=== PATIENT | female | born 1965 ===

== ENCOUNTER 2017-06-12 14:09 | Emergency (ER) | payer OTHER ==
[2017-06-12 14:09] VITALS: BMI 30.1
[2017-06-12 14:20] VITALS: RESP 20; TEMP 98.3; O2SAT 97
[2017-06-12 15:44] LABS: RBC URINE 1 /hpf (0-3); URINE BILIRUBIN NEGATIVE (NEGATIVE); URINE BLOOD NEGATIVE (NEGATIVE); URINE COLOR Yellow (YELLOW); URINE GLUCOSE (UA) NORMAL (Normal); URINE KETONE NEGATIVE (NEGATIVE); URINE LEUKOCYTE ESTERASE NEG Leu/uL (Negative); URINE PROTEIN NEGATIVE (NEGATIVE); URINE UROBILINOGEN NORMAL mg/dL (0.2-1.0); WBC URINE < 1 /hpf (0-5)
--- NOTE | 2017-06-12 15:58 | C.PDOC ---
Time Seen by Provider: 06/12/17 14:43 Chief Complaint (Nursing): Fever History Per: Patient Onset/Duration Of Symptoms: Days (1) Current Symptoms Are (Timing): Still Present Associated Symptoms: Fever (subjective), Myalgias, Nasal Congestion Severity: Moderate Recent travel outside of the [place]: No Additional History Per: Prior Records Past Medical History Reviewed: Historical Data, Nursing Documentation, Vital Signs Vital Signs: Last Vital Signs Temp 98.3 F 06/12/17 14:19 Pulse 89 06/12/17 14:19 Resp 20 06/12/17 14:19 BP 129/89 06/12/17 14:19 Pulse Ox 97 06/12/17 14:19 - Medical History PMH: Anxiety, Arthritis, Asthma, Back Problems, Bipolar Disorder, Depression, Gastritis, HTN, Osteoporosis, Rheumatoid Arthritis, Sleep Apnea Other PMH: Lupus Other Surgeries: Hysterectomy - [facility] Procedures PHYSICAL THERAPY [facility] (03/12/15) Family History: States: Unknown Family Hx - Social History Hx Tobacco Use: No Hx Alcohol Use: No Hx Substance Use: No - Immunization History Hx Tetanus Toxoid Vaccination: No Hx Influenza Vaccination: Yes Hx Pneumococcal Vaccination: No Review Of Systems Except As Marked, All Systems Reviewed And Found Negative. Constitutional: Negative for: Weakness ENT: Positive for: Nose Congestion. Negative for: Ear Pain, Throat Pain Cardiovascular: Negative for: Chest Pain Respiratory: Negative for: Shortness of Breath Gastrointestinal: Negative for: Vomiting, Abdominal Pain, Diarrhea Genitourinary: Negative for: Dysuria Musculoskeletal: Positive for: Other (Arthralgias) Neurological: Negative for: Weakness, Numbness, Seizures, Altered Mental Status Physical Exam - Physical Exam Appears: Non-toxic, No Acute Distress Skin: Normal Color, Warm, Dry Head: Atraumatic, Normacephalic Eye(s): bilateral: Normal Inspection, PERRL, EOMI Oral Mucosa: Moist Throat: Normal Neck: Normal ROM, Supple Lymphatic: No Adenopathy Cardiovascular: Rhythm Regular Respiratory: Normal Breath Sounds, No Accessory Muscle Use Gastrointestinal/Abdominal: Soft, No Tenderness Extremity: Normal ROM, No Pedal Edema Neurological/Psych: Oriented x3, Normal Speech, Normal Cognition, Normal Motor, Normal Sensation ED Course And Treatment O2 Sat by Pulse Oximetry: 97 Pulse Ox Interpretation: Normal Reassessment Condition: Improved Disposition Counseled Patient/Family Regarding: Studies Performed, Diagnosis, Need For Followup, Rx Given - Disposition Disposition: HOME/ ROUTINE Disposition Time: 15:58 Condition: STABLE Additional Instructions: Follow up with your doctor this week for further evaluation and treatment. Return to the ER if you develop high fever, lethargy, shortness of breath, abdominal pain, vomiting, worsening of symptoms or if you have any other concerns. Prescriptions: traMADol/Acetaminophen [Ultracet 325 MG-37.5 MG] 1 tab PO Q4 PRN #30 tab PRN Reason: Pain, Severe (8-10) Instructions: Arthralgia (ED) Forms: [employer] (Arabic) - Clinical Impression Clinical Impression: Arthralgia
[2017-06-12 16:05] VITALS: BP 124/84; PULSE 78
== END 2017-06-12 16:04 | disposition home or self-care (01) ==
LOC: C.ER 14:09
DX: M25.50 Pain in unspecified joint (principal)

== ENCOUNTER 2017-09-07 10:04 | Emergency (ER) | payer OTHER ==
[2017-09-07 10:10] VITALS: RESP 16; TEMP 97.8
[2017-09-07 10:12] VITALS: BMI 33.9
[2017-09-07] MEDS: Sodium Chloride 0.9% 1,000 ML IV ONE (10:48)
[2017-09-07 10:50] LABS: BASO % 0.7 % (0.0-2.0); EOS # 0.1 K/uL (0.0-0.7); EOS % 1.8 % (0.0-4.0); HEMATOCRIT 39.8 % (34.0-47.0); LYMPH # 2.5 K/uL (1.0-4.3); LYMPH % 36.7 % (20.0-40.0); MEAN CELL VOLUME 81.4 fL (81.0-99.0); MEAN CORPUSCULAR HEMOGLOBIN 27.2 pg (27.0-31.0); MEAN CORPUSCULAR HGB CONC 33.4 g/dL (33.0-37.0); MEAN PLATELET VOLUME 8.4 fL (7.2-11.7); MONO # 0.5 K/uL (0.0-0.8); MONO % 7.8 % (0.0-10.0); NRBC % 0.1 % (0.0-2.0); RED CELL DISTRIBUTION WIDTH 14.9 % (11.5-14.5); WHITE BLOOD COUNT 6.8 K/uL (4.8-10.8)
--- NOTE | 2017-09-07 10:58 | C.PDOC ---
History Of Present Illness 52 year old female, with PMHx of rheumatoid arthritis, lupus, fibromyalgia, presents to ED for evaluation of gradual development of upper back pain over the past 6 days. Patient states that when she turned her head in the shower 6 days ago, she suddenly felt a sharp pain along the upper back spine, and states that pain has gotten worse since that time. Notes that pain is worse today, and states she felt "chest tightness from the pain." Pt states that she only takes Tylenol for her pain, she has tried multiple other medications but develops reaction to it. Otherwise, pt denies headache, dizziness, visual changes, focal deficits, neck pain, N/V, denies CP at present time, shortness of breath, palpitations, diaphoresis, abd. pain, vomiting, diarrhea, denies weakness, sensory or vascular deficits to B/L UEs and LEs. At the time of evaluation, pt appears comfortable, not in any apparent distress. PMD: Brayden Staley Pantry Cook: Dr. Vivas Time Seen by Provider: 09/07/17 10:20 Chief Complaint (Nursing): Chest Pain History Per: Patient History/Exam Limitations: no limitations Onset/Duration Of Symptoms: Days (6), Gradual Current Symptoms Are (Timing): Still Present Quality: "Pain" Associated Symptoms: denies: Nausea, Dyspnea, Diaphoresis, Syncope Modifying Factors: None Exacerbating Factors: None Alleviating Factors: None Recent travel outside of the [place]: No Additional History Per: Patient Past Medical History Reviewed: Historical Data, Nursing Documentation, Vital Signs Vital Signs: Last Vital Signs Temp 97.8 F 09/07/17 10:09 Pulse 97 H 09/07/17 12:21 Resp 16 09/07/17 12:21 BP 125/74 09/07/17 12:21 Pulse Ox 98 09/07/17 12:21 - Medical History PMH: Anxiety, Arthritis, Asthma, Back Problems, Bipolar Disorder, Depression, Gastritis, HTN, Osteoporosis, Rheumatoid Arthritis, Sleep Apnea Denies: Chronic Kidney Disease - [facility] Procedures PHYSICAL THERAPY [facility] (03/12/15) Family History: States: Unknown Family Hx - Social History Hx Tobacco Use: No Hx Alcohol Use: No Hx Substance Use: No - Immunization History Hx Tetanus Toxoid Vaccination: No Hx Influenza Vaccination: No Hx Pneumococcal Vaccination: No Review Of Systems Except As Marked, All Systems Reviewed And Found Negative. Constitutional: Negative for: Fever, Chills Eyes: Negative for: Vision Change Cardiovascular: Positive for: Chest Pain (tightness). Negative for: Palpitations, Edema, Light Headedness Respiratory: Negative for: Cough, Shortness of Breath Gastrointestinal: Negative for: Nausea, Vomiting, Abdominal Pain Genitourinary: Negative for: Dysuria, Incontinence Musculoskeletal: Positive for: Back Pain. Negative for: Neck Pain Skin: Negative for: Rash, Bruising Neurological: Negative for: Weakness, Numbness, Headache, Dizziness Physical Exam - Physical Exam Appears: Non-toxic, No Acute Distress Skin: Normal Color, Warm, Dry, No Rash Head: Normacephalic Eye(s): bilateral: PERRL Nose: No Flaring Oral Mucosa: Moist, No Drooling Throat: No Erythema Neck: Normal ROM, Trachea Midline, No Midline Cervical Tenderness, No Paracervical Tenderness, Supple Chest: Symmetrical, No Deformity, No Tenderness Cardiovascular: Rhythm Regular, No Murmur, No JVD, Other (no carotid bruits B/L) Respiratory: No Accessory Muscle Use, No Rales, No Rhonchi, No Stridor, No Wheezing, No Plerual Rub Gastrointestinal/Abdominal: Soft, No Tenderness, No Distention, No Guarding Back: No CVA Tenderness, No Vertebral Tenderness, Paraspinal Tenderness ( diffuse parathoracic, paralumbar) Extremity: Normal ROM, Tenderness (bilateral periscapular), No Pedal Edema, No Calf Tenderness, Capillary Refill (< 2 secs.), No Deformity, No Swelling Neurological/Psych: Oriented x3, Normal Speech, Normal Cognition, Normal Motor, Normal Sensation, Normal Reflexes ED Course And Treatment - Laboratory Results Result Diagrams: 09/07/17 10:45 09/07/17 10:45 Lab Interpretation: Normal ECG: Interpreted By Me, Viewed By Me (and ED attending) Interpretation Of ECG: SR@54/min, LAD, T wave inversion in III, AVF, no acute ST -T chabges. Compare to old EKG from 11/07/14 and appears similar , no new acute changes noted. O2 Sat by Pulse Oximetry: 97 (RA) Pulse Ox Interpretation: Normal - CT Scan/US Chest CT Other Rad Studies (CT/US): Read By Radiologist, Radiology Report Reviewed CT/US Interpretation: Accession No. : [id number]. Patient Name / ID : ELISEO CRANE / [id number]. Exam Date : 09/07/2017 11:00:25 ( Approved ). Study Comment : Sex / Age : F / 52Y. Creator : Bee Henderson MD. Dictator : Bee Henderson MD. Granular Operator : Dry Cleaner Helper : Bee Henderson MD. Approver2 : Report Date : 09/07/2017 11:25:41. My Comment : . CT chest without IV contrast. Indication: Shortness of breath. Technique: Contiguous axial images were obtained through the chest without intravenous contrast enhancement. Sagittal and coronal reconstructions were generated and reviewed. This CT exam was performed using 1 or more of the falling dose reduction techniques: Automated exposure control, adjustment of the MAA and/or kV according to patient size, and/or use of iterative reconstruction technique. . Radiation dose (DLP): 806.35 MGy-cm. Comparison: Chest x-ray performed . Findings: Visualized portions of the inferior thyroid gland appear unremarkable. The unenhanced mediastinal and hilar vascular structures appear grossly unremarkable. The heart appears within normal limits of size. No focal consolidation. No pleural effusion. No pneumothorax. Several tiny pulmonary nodules noted in the right lower lobe. For example 5 mm (series 3, image 54); 3 mm (image 55), 4 mm (image 61); 5 mm (image 64). Limited visualization of the noncontrast upper abdomen appears grossly unremarkable. Degenerative changes of the spine. Impression: Several right lower lobe pulmonary nodules measuring up to 5 mm. According to the 2017 Fleischner criteria, if the patient is low risk, no routine follow-up is recommended. The patient is high risk, an optional CT at 12 months is recommended. Progress Note: Blood work, urinalysis, chest CT scan, EKG ordered and reviewed. Patient was given IV fluids, and Valium. On re-evaluation, pt is afebrile, hemodynamicaly stable. Non-toxic. PulsEOx 100% RA. ENT: no acute findings. neck: Supple, (-) JVD, (-) carotid bruits B/L. Lungs: CTA B/L, BS equal B/L. CVS: (+)S1S2, reg. Abd: benign. Neurologicaly intact. Blood work and imaging review and appears without acute abnormalities. Case discussed with pt's manager company and results review. As per doctor, pt refusing all offered Rh, Lupus and pain medication , takes limited medication . recommend discahrge with outpt f/u now. results review and discussed with patient. Will Rx: Robaxin, tylenol with outpt f/u now with PMD, Rh for further eval/tx, PT. Pt understand and agrees with alexia. Pt is stable for discahrge now. Disposition Counseled Patient/Family Regarding: Studies Performed, Diagnosis, Need For Followup, Rx Given - Disposition Referrals: Neo Vivas Jr., MD [Staff Provider] - Geoff Staley MD [Staff Provider] - Disposition: HOME/ ROUTINE Disposition Time: 12:07 Condition: STABLE Additional Instructions: Light duty to back area, avoid physical activity for 1 week Take medication as prescribed for pain as need Follow up with PMD, Rheumatology in 2-3 days for re-evaluation. Return to ED if any worsening or new changes. Prescriptions: Methocarbamol [Robaxin] 500 mg PO TID #20 tab Instructions: Back Pain (ED) Forms: [facility] [employer] (Solomon Islander) - Clinical Impression Clinical Impression: Back pain - PA / ESTATE ADMINISTRATOR / Resident Statement MD/DO has reviewed & agrees with the documentation as recorded. - Scribe Statement The provider has reviewed the documentation as recorded by the Scribe Evgeny James All medical record entries made by the Scribe were at my direction and personally dictated by me. I have reviewed the chart and agree that the record accurately reflects my personal performance of the history, physical exam, medical decision making, and the department course for this patient. I have also personally directed, reviewed, and agree with the discharge instructions and disposition.
[2017-09-07 11:03] LABS: CHLORIDE 101 mmol/L (98-107)
[2017-09-07 11:04] LABS: POTASSIUM 4.2 mmol/L (3.6-5.2); SODIUM 135 mmol/L (132-148)
[2017-09-07 11:06] LABS: ALB/GLOB RATIO 1.4 (1.0-2.1); BILIRUBIN,TOTAL 0.4 mg/dL (0.2-1.3); CARBON DIOXIDE 22 mmol/L (22-30); GFR AFRICAN-AMERICAN > 60
[2017-09-07 11:07] LABS: ALKALINE PHOSPHATASE 76 U/L (38-126); ALT/SGPT 32 U/L (9-52); AST/SGOT 24 U/L (14-36); BLOOD UREA NITROGEN 16 mg/dL (7-17); CALCIUM 9.3 mg/dl (8.6-10.4); GLUCOSE,RANDOM 96 mg/dL (65-105)
[2017-09-07 11:09] LABS: RBC URINE 1 /hpf (0-3); URINE BILIRUBIN NEGATIVE (NEGATIVE); URINE BLOOD NEGATIVE (NEGATIVE); URINE COLOR Yellow (YELLOW); URINE GLUCOSE (UA) NORMAL (Normal); URINE KETONE NEGATIVE (NEGATIVE); URINE LEUKOCYTE ESTERASE NEG Leu/uL (Negative); URINE PROTEIN NEGATIVE (NEGATIVE); URINE UROBILINOGEN NORMAL mg/dL (0.2-1.0); WBC URINE < 1 /hpf (0-5)
--- NOTE | 2017-09-07 11:27 | CT ---
CT chest without IV contrast Indication: Shortness of breath Technique: Contiguous axial images were obtained through the chest without intravenous contrast enhancement. Sagittal and coronal reconstructions were generated and reviewed. This CT exam was performed using 1 or more of the falling dose reduction techniques: Automated exposure control, adjustment of the MAA and/or kV according to patient size, and/or use of iterative reconstruction technique. Radiation dose (DLP): 806.35 MGy-cm. Comparison: Chest x-ray performed 12/07/14. Findings: Visualized portions of the inferior thyroid gland appear unremarkable. The unenhanced mediastinal and hilar vascular structures appear grossly unremarkable. The heart appears within normal limits of size. No focal consolidation. No pleural effusion. No pneumothorax. Several tiny pulmonary nodules noted in the right lower lobe. For example 5 mm (series 3, image 54); 3 mm (image 55), 4 mm (image 61); 5 mm (image 64). Limited visualization of the noncontrast upper abdomen appears grossly unremarkable. Degenerative changes of the spine. Impression: Several right lower lobe pulmonary nodules measuring up to 5 mm. According to the 2017 Fleischner criteria, if the patient is low risk, no routine follow-up is recommended. The patient is high risk, an optional CT at 12 months is recommended.
[2017-09-07 12:22] VITALS: BP 125/74; PULSE 97
[2017-09-07 18:38] VITALS: O2SAT 97
--- NOTE | 2017-09-09 10:30 | CARD ---
APPROVED REPORT EKG Measurement Heart [id number] <Conclusion> Normal sinus rhythm Cannot rule out Anterior infarct, age undetermined Abnormal ECG
== END 2017-09-07 13:22 | disposition home or self-care (01) ==
LOC: C.ER 10:04
DX: M54.9 Dorsalgia, unspecified (principal); I10 Essential (primary) hypertension; M06.9 Rheumatoid arthritis, unspecified; M32.9 Systemic lupus erythematosus, unspecified; M79.7 Fibromyalgia; M81.0 Age-related osteoporosis without current pathological fracture
CPT/HCPCS: 71250; 80053; 81001; 84484; 85025; 85610; 85730; 93005; 96360; 99284; J7040

== ENCOUNTER 2018-05-11 17:34 | Emergency (ER) | payer OTHER ==
[2018-05-11 17:35] VITALS: BMI 33.9
[2018-05-11 17:48] VITALS: RESP 20; TEMP 98.4
--- NOTE | 2018-05-11 18:47 | C.PDOC ---
History Of Present Illness 53-year-old female, presents to the emergency department with complaints of a mild headache. Patient states she came home today and smelled gas in her apartment. States [employer], and Fire department were called. Carbon monoxide was detected and gas was shut off. Denies any nausea/vomiting, dizziness, shortness of breath or chest pain. No other complaints at this time. Chief Complaint (Nursing): Headache History Per: Patient History/Exam Limitations: no limitations Onset/Duration Of Symptoms: Days Current Symptoms Are (Timing): Still Present Severity: Moderate Past Medical History Reviewed: Historical Data, Nursing Documentation, Vital Signs Vital Signs: Last Vital Signs Temp 98.4 F 05/11/18 17:48 Pulse 71 05/11/18 19:35 Resp 20 05/11/18 19:35 BP 119/84 05/11/18 19:35 Pulse Ox 100 05/11/18 19:35 - Medical History PMH: Anxiety, Arthritis, Asthma, Back Problems, Bipolar Disorder, Depression, Gastritis, HTN, Osteoporosis, Rheumatoid Arthritis, Sleep Apnea - [facility] Procedures PHYSICAL THERAPY [facility] (03/12/15) Family History: States: No Known Family Hx - Social History Hx Tobacco Use: No Hx Alcohol Use: No Hx Substance Use: No - Immunization History Hx Tetanus Toxoid Vaccination: No Hx Influenza Vaccination: No Hx Pneumococcal Vaccination: No Review Of Systems Constitutional: Negative for: Fever, Chills Cardiovascular: Negative for: Chest Pain, Palpitations Respiratory: Negative for: Shortness of Breath Gastrointestinal: Negative for: Nausea, Vomiting Musculoskeletal: Negative for: Neck Pain, Back Pain Skin: Negative for: Rash Neurological: Positive for: Headache. Negative for: Weakness, Numbness, Dizziness Physical Exam - Physical Exam Appears: Well, Non-toxic, No Acute Distress Skin: Normal Color, Warm, Dry, No Rash Head: Atraumatic, Normacephalic Eye(s): bilateral: Normal Inspection, PERRL, EOMI Nose: Normal Oral Mucosa: Moist Lips: Normal Appearing Neck: Normal ROM Cardiovascular: Rhythm Regular, No Murmur Respiratory: Normal Breath Sounds, No Accessory Muscle Use Gastrointestinal/Abdominal: Soft, No Tenderness Back: Normal Inspection Extremity: Normal ROM, No Deformity, No Swelling Neurological/Psych: Oriented x3, Normal Speech ED Course And Treatment O2 Sat by Pulse Oximetry: 99 (RA) Pulse Ox Interpretation: Normal Disposition - Disposition Referrals: [facility], [Non-Staff] - Disposition: HOME/ ROUTINE Disposition Time: 19:20 Condition: IMPROVED Additional Instructions: ROSA MARIA GOMES, thank you for letting us take care of you today. Your provider was Song Brown DO and you were treated for HEADACHE. The emergency medical care you received today was directed at your acute symptoms. If you were prescribed any medication, please fill it and take as directed. It may take several days for your symptoms to resolve. Return to the Emergency Department if your symptoms worsen, do not improve, or if you have any other problems. Please contact your doctor or call one of the physicians/clinics you have been referred to that are listed on the Patient Visit Information form that is included in your discharge packet. Bring any paperwork you were given at discharge with you along with any medications you are taking to your follow up visit. Our treatment cannot replace ongoing medical care by a primary care provider outside of the emergency department. Thank you for allowing the [facility] team to be part of your care today. DO NOT GO BACK HOME UNTIL [employer] AND/OR POLICE STATE THAT IT IS SAFE. Return to the emergency room if you haven any concerns. Instructions: Carbon Monoxide Poisoning (DC) Forms: [employer] (Greek) - Clinical Impression Clinical Impression: Exposure to carbon monoxide - Scribe Statement The provider has reviewed the documentation as recorded by the Scribe (Donald Workman) All medical record entries made by the Scribe were at my direction and personally dictated by me. I have reviewed the chart and agree that the record accurately reflects my personal performance of the history, physical exam, medical decision making, and the department course for this patient. I have also personally directed, reviewed, and agree with the discharge instructions and disposition.
[2018-05-11 19:39] VITALS: BP 119/84; PULSE 71
[2018-05-12 00:28] VITALS: O2SAT 99
== END 2018-05-11 19:35 | disposition home or self-care (01) ==
LOC: C.ER 17:34
DX: T75.89XA Other specified effects of external causes, initial encounter (principal); X58.XXXA Exposure to other specified factors, initial encounter

== ENCOUNTER 2018-05-18 13:15 | Emergency (ER) | payer OTHER ==
[2018-05-18 13:20] VITALS: BMI 33.7
[2018-05-18 13:46] LABS: URINE BILIRUBIN NEGATIVE (NEGATIVE); URINE BLOOD NEGATIVE (NEGATIVE); URINE CLARITY Clear (Clear); URINE COLOR Colorless (YELLOW); URINE GLUCOSE (UA) NORMAL (Normal); URINE LEUKOCYTE ESTERASE NEG Leu/uL (Negative); URINE PROTEIN NEGATIVE (NEGATIVE); URINE UROBILINOGEN NORMAL mg/dL (0.2-1.0)
[2018-05-18] MEDS ORDERED: Alum-Mag Hydrox-Simethicone Susp (30 mL) PO STA (13:51)
--- NOTE | 2018-05-18 13:55 | C.PDOC ---
History Of Present Illness The patient reports a sensation of "numbness" to the back over the past 1 day. The patient reports that she has a history of herniated discs of the spine and had a MRI done last month. The patient also complains of abdominal bloating and increased belching over the past 2 days. Patient reports that she has tried OTC gas medications without relief. Denies bowel/bladder incontinence, fever, nausea , vomiting, diarrhea, chest pain, SOB, weakness, Gi bleeding, Time Seen by Provider: 05/18/18 13:26 Chief Complaint (Nursing): Back Pain History Per: Patient History/Exam Limitations: no limitations Onset/Duration Of Symptoms: Persistent Current Symptoms Are (Timing): Still Present Quality Of Discomfort: Gas Pain Scale Rating Of: 1 Associated Symptoms: denies: Incontinence, New Weakness Exacerbating Factor(s): Turning, Movement Recent travel outside of the [place]: No Past Medical History Reviewed: Historical Data, Nursing Documentation, Vital Signs Vital Signs: Last Vital Signs Temp 98.2 F 05/18/18 15:07 Pulse 90 05/18/18 15:07 Resp 16 05/18/18 15:07 BP 123/54 L 05/18/18 15:07 Pulse Ox 99 05/18/18 15:07 - Medical History PMH: Anxiety, Arthritis, Asthma, Back Problems, Bipolar Disorder, Depression, Gastritis, HTN, Osteoporosis, Rheumatoid Arthritis, Sleep Apnea Denies: Chronic Kidney Disease - [facility] Procedures PHYSICAL THERAPY [facility] (03/12/15) Family History: States: Unknown Family Hx - Social History Hx Tobacco Use: No Hx Alcohol Use: No Hx Substance Use: No - Immunization History Hx Tetanus Toxoid Vaccination: No Hx Influenza Vaccination: No Hx Pneumococcal Vaccination: No Review Of Systems Constitutional: Negative for: Fever, Chills, Weakness Eyes: Negative for: Pain ENT: Negative for: Ear Pain Cardiovascular: Negative for: Chest Pain, Light Headedness Respiratory: Negative for: Cough, Shortness of Breath Gastrointestinal: Positive for: Constipation, Other (bloating). Negative for: Nausea, Vomiting, Abdominal Pain, Melena, Hematochezia, Hematemesis Genitourinary: Negative for: Dysuria Musculoskeletal: Negative for: Neck Pain Skin: Negative for: Rash Neurological: Negative for: Weakness Physical Exam - Physical Exam Appears: Non-toxic, No Acute Distress Skin: Normal Color, Warm, No Rash Head: Atraumatic, Normacephalic Eye(s): bilateral: Normal Inspection Oral Mucosa: Moist Throat: No Erythema, No Exudate Neck: Normal ROM, Supple Chest: Symmetrical, No Tenderness Cardiovascular: Rhythm Regular, No Friction Rub, No Murmur Respiratory: Normal Breath Sounds, No Rales, No Rhonchi, No Wheezing Gastrointestinal/Abdominal: Bowel Sounds (active), Soft, No Tenderness, No Guarding, No Rebound, No Hernia Back: Normal Inspection, No CVA Tenderness Extremity: Normal ROM, No Tenderness, No Swelling Neurological/Psych: Oriented x3, Normal Speech, Normal Motor Gait: Steady ED Course And Treatment O2 Sat by Pulse Oximetry: 97 (on RA) Pulse Ox Interpretation: Normal Medical Decision Making Medical Decision Making: UA is negative for UTI. The patient's physical exam and vitals are WNLs. On re-exam, the patient reports improvement of symptoms. Lungs are CTA, heart is RRR, abdomen is soft, non-tender and tolerating PO well. Ambulatory in the ED with steady gait. Follow up with the medical doctor within 1-2 days. Return if worsened, Disposition - Disposition Referrals: Geoff Staley MD [Staff Provider] - Disposition: HOME/ ROUTINE Disposition Time: 14:51 Condition: GOOD Additional Instructions: Follow up with the medical doctor within 1-2 days. Return if worsened, Prescriptions: Aluminum Hydroxide/Magnesium [Maalox Plus 30 ml] 30 ml PO TID #200 udc Polyethylene Glycol 3350 [Miralax] 17 gm PO DAILY PRN #100 ml PRN Reason: Constipation Instructions: Herniated Disc, Gas and Bloating Forms: [facility] (Lebanese) - POA Present On Arrival: None - Clinical Impression Clinical Impression: Herniated disc, Bloating
[2018-05-18] MEDS ORDERED: Aluminum Hydroxide/Magnesium Hydroxide Susp (30 mL) ONE (14:02)
--- NOTE | 2018-05-18 14:24 | RAD ---
PROCEDURE: Radiographs of the chest and abdomen (obstructive series) HISTORY: Abdominal bloating, constipation COMPARISON: No prior. TECHNIQUE: AP radiograph of the chest, with upright and supine radiographs of the abdomen. FINDINGS: CHEST: Lungs: The lungs are well inflated. There is subsegmental atelectasis in the lower lobes. Cardiovascular: Normal size heart. No pulmonary vascular congestion. Pleura: No pleural fluid. No pneumothorax. Other findings: None. ABDOMEN AND PELVIS: Bowel: There is moderate amount of stool in the rectum. The bowel gas pattern is nonspecific. No evidence of mechanical obstruction. Free air: None. Bones: Unremarkable. Other findings: There is a surgical clip in the left hemipelvis. IMPRESSION: Nonspecific bowel gas pattern Clear lungs.
[2018-05-18 15:10] VITALS: BP 123/54; PULSE 90; RESP 16; TEMP 98.2
[2018-05-18 22:25] VITALS: O2SAT 97
== END 2018-05-18 15:07 | disposition home or self-care (01) ==
LOC: C.ER 13:15
DX: S39.012A Strain of muscle, fascia and tendon of lower back, initial encounter (principal); X58.XXXA Exposure to other specified factors, initial encounter; R14.0 Abdominal distension (gaseous); Z87.898 Personal history of other specified conditions

== ENCOUNTER 2018-07-16 08:14 | Emergency (ER) | payer OTHER ==
[2018-07-16 08:27] VITALS: BMI 33.4
[2018-07-16 08:33] VITALS: TEMP 98.5
[2018-07-16] MEDS ORDERED: Sodium Chloride 0.9% 1,000 ML IV SCH (08:45)
--- NOTE | 2018-07-16 08:56 | C.PDOC ---
History Of Present Illness 53 year old female patient with hx of bipolar, depression, HTN and multiple herniated disc presents to the ER with c/o SOB upon waking up. Associated symptoms includes chest pressure that radiates to the back, dizziness and "patchy" numbness to the left face, ear, arm and leg. Patient states she had weakness in her left leg. Patient notes she was in the ER in April and May due to carbon monoxide poisoning in her apartment which gave her headache and numbness to her back. The fire department was notified and issue was resolved. She states she is concerned because she still smells the fumes. Patient is currently asymptomatic, denies headache, chest pain, numbness, weakness and n/ v. Patient is allergic to ibuprofen. Time Seen by Provider: 07/16/18 08:31 Chief Complaint (Nursing): Shortness Of Breath History Per: Patient History/Exam Limitations: no limitations Onset/Duration Of Symptoms: Days Current Symptoms Are (Timing): Better Past Medical History Reviewed: Historical Data, Nursing Documentation, Vital Signs Vital Signs: Last Vital Signs Temp 98.5 F 07/16/18 08:20 Pulse 83 07/16/18 08:20 Resp 18 07/16/18 08:45 BP 139/83 07/16/18 08:20 Pulse Ox 96 07/16/18 10:51 - Medical History PMH: Anxiety, Arthritis, Asthma, Back Problems, Bipolar Disorder, Depression, Gastritis, HTN, Osteoporosis, Rheumatoid Arthritis, Sleep Apnea - [facility] Procedures PHYSICAL THERAPY NEC (03/12/15) Family History: States: Unknown Family Hx - Social History Hx Tobacco Use: No Hx Alcohol Use: No Hx Substance Use: No - Immunization History Hx Tetanus Toxoid Vaccination: No Hx Influenza Vaccination: No Hx Pneumococcal Vaccination: No Review Of Systems Except As Marked, All Systems Reviewed And Found Negative. Cardiovascular: Negative for: Chest Pain Gastrointestinal: Negative for: Nausea, Vomiting Neurological: Positive for: Dizziness. Negative for: Weakness, Numbness, Headache Physical Exam - Physical Exam Appears: Non-toxic, No Acute Distress Skin: Normal Color, Warm, Dry Head: Atraumatic, Normacephalic Chest: Symmetrical, No Deformity Cardiovascular: Rhythm Regular Respiratory: Normal Breath Sounds, No Rales, No Rhonchi, No Wheezing Gastrointestinal/Abdominal: Soft, No Tenderness, Other (obese) Back: Normal Inspection, No CVA Tenderness Extremity: Normal ROM (x4) Extremity: Bilateral: Atraumatic, Normal Color And Temperature Neurological/Psych: Oriented x3, Normal Speech, Normal Cognition, Normal Cranial Nerves, Normal Motor, Normal Sensation Gait: Steady ED Course And Treatment - Laboratory Results Result Diagrams: 07/16/18 09:27 07/16/18 09:27 O2 Sat by Pulse Oximetry: 96 (RA) Pulse Ox Interpretation: Normal - Other Rad chest X-Ray: Read By Radiologist Interpretation: Accession No. : [id number]. Patient Name / ID : ELISEO CRANE / [id number]. Exam Date : 07/16/2018 08:49:13 ( Approved ). Study Comment : Sex / Age : F / 53Y. Creator : Vijay Carpio MD. Dictator : [employer] Developer : [employer] Worker : Vijay Carpio MD. Approver2 : Report Date : 07/16/2018 09:42:25. My Comment : . Date of service: 07/16/2018. HISTORY : Code Stroke. COMPARISON: Comparison chest 12/07/2014. FINDINGS: LUNGS: Minor bibasilar atelectasis. There is a discrete curvilinear density left lateral lower lung field that may represent linear atelectasis and/or scarring. PLEURA: No significant pleural effusion identified, no pneumothorax apparent. CARDIOVASCULAR: Heart appears mildly enlarged. OSSEOUS STRUCTURES: No significant abnormalities. VISUALIZED UPPER ABDOMEN: Normal. OTHER FINDINGS: None. IMPRESSION: Minor bibasilar atelectasis. There is a discrete curvilinear density left lateral lower lung field that may represent linear atelectasis and/or scarring - CT Scan/US head Other Rad Studies (CT/US): Read By Radiologist, Radiology Report Reviewed CT/US Interpretation: Accession No. : [id number]. Patient Name / ID : ELISEO CRANE / [id number]. Exam Date : 07/16/2018 09:09:22 ( Approved ). Study Comment : Sex / Age : F / 53Y. Creator : Vijay Carpio MD. Dictator : [employer] Developer : [employer] Worker : Vijay Carpio MD. Approver2 : Report Date : 07/16/2018 10:21:58. My Comment : . Date of service: 2017. PROCEDURE: CT HEAD WITHOUT CONTRAST. HISTORY: left side numbness. COMPARISON: None available. TECHNIQUE: Axial computed tomography images were obtained through the head/brain without intravenous contrast. Radiation dose: Total exam DLP = mGy-cm. This CT exam was performed using one or more of the following dose reduction techniques: Automated exposure control, adjustment of the mA and/or kV according to patient size, and/or use of iterative reconstruction technique. FINDINGS: HEMORRHAGE: No intracranial hemorrhage. BRAIN: No mass effect or edema. No atrophy or chronic microvascular ischemic changes. VENTRICLES: Unremarkable. No hydrocephalus. CALVARIUM: Unremarkable. PARANASAL SINUSES: Unremarkable as visualized. No significant inflammatory changes. MASTOID AIR CELLS: Unremarkable as visualized. No inflammatory changes. OTHER FINDINGS: None. IMPRESSION: Normal CT of the Head. - Physician Consult Information Time Consulting Physician Contacted: 08:51 Physician Contacted: Mau Adams Outcome Of Conversation: discussed case: Dr. Adams agrees with plan and dx of pt. Medical Decision Making Medical Decision Making: Impression: left-sided numbness, headache r/o ACS, TIA Plans: -- carboxyhemoglobin stat -- blood work -- CT head -- CXR -- IV fluids Reassess: code stroke was not called because sx is not consistent with neuro gradiation, but with anxiety. Case discussed with Dr. Adams and agrees with plan. Disposition Counseled Patient/Family Regarding: Studies Performed, Diagnosis, Need For Followup - Disposition Referrals: Geoff Staley MD [Staff Provider] - Disposition: HOME/ ROUTINE Disposition Time: 10:49 Condition: STABLE Instructions: Shortness of Breath (Dyspnea) (DC) Forms: Gen Discharge Inst [facility], [facility] ([place]) - POA Present On Arrival: None - Clinical Impression Clinical Impression: Dyspnea - Scribe Statement The provider has reviewed the documentation as recorded by the Scribe Pam Troy Provider Attestation: All medical record entries made by the Scribe were at my direction and personally dictated by me. I have reviewed the chart and agree that the record accurately reflects my personal performance of the history, physical exam, medical decision making, and the department course for this patient. I have also personally directed, reviewed, and agree with the discharge instructions and disposition.
[2018-07-16 09:28] LABS: ARTERIAL BLOOD GAS HEMOGLOBIN 11.6 g/dL (11.7-17.4); ARTERIAL BLOOD GAS O2 SAT 99.3 % (95-98)
[2018-07-16 09:32] LABS: BASO % 0.6 % (0.0-2.0); EOS # 0.1 K/uL (0.0-0.7); EOS % 2.2 % (0.0-4.0); HEMOGLOBIN 11.9 g/dL (11.0-16.0); LYMPH # 2.1 K/uL (1.0-4.3); MEAN CELL VOLUME 82.5 fL (81.0-99.0); MEAN CORPUSCULAR HEMOGLOBIN 27.1 pg (27.0-31.0); MEAN CORPUSCULAR HGB CONC 32.9 g/dL (33.0-37.0); MEAN PLATELET VOLUME 8.3 fL (7.2-11.7); MONO # 0.5 K/uL (0.0-0.8); MONO % 8.2 % (0.0-10.0); NEUT # 3.9 K/uL (1.8-7.0); NRBC % 0.1 % (0.0-2.0); RBC 4.4 Mil/uL (3.80-5.20); RED CELL DISTRIBUTION WIDTH 15.4 % (11.5-14.5); WHITE BLOOD COUNT 6.6 K/uL (4.8-10.8)
[2018-07-16 09:44] LABS: ALB/GLOB RATIO 1.3 (1.0-2.1); ALT/SGPT 27 U/L (9-52); AST/SGOT 21 U/L (14-36); BLOOD UREA NITROGEN 14 mg/dL (7-17); GFR NON-AFRICAN AMERICAN > 60
--- NOTE | 2018-07-16 09:44 | RAD ---
Date of service: 07/16/2018 HISTORY: Code Stroke COMPARISON: Comparison chest 12/07/2014 FINDINGS: LUNGS: Minor bibasilar atelectasis. There is a discrete curvilinear density left lateral lower lung field that may represent linear atelectasis and/or scarring PLEURA: No significant pleural effusion identified, no pneumothorax apparent. CARDIOVASCULAR: Heart appears mildly enlarged. OSSEOUS STRUCTURES: No significant abnormalities. VISUALIZED UPPER ABDOMEN: Normal. OTHER FINDINGS: None. IMPRESSION: Minor bibasilar atelectasis. There is a discrete curvilinear density left lateral lower lung field that may represent linear atelectasis and/or scarring
--- NOTE | 2018-07-16 10:23 | CT ---
Date of service: 07/16/2018 PROCEDURE: CT HEAD WITHOUT CONTRAST. HISTORY: left side numbness COMPARISON: None available. TECHNIQUE: Axial computed tomography images were obtained through the head/brain without intravenous contrast. Radiation dose: Total exam DLP = mGy-cm. This CT exam was performed using one or more of the following dose reduction techniques: Automated exposure control, adjustment of the mA and/or kV according to patient size, and/or use of iterative reconstruction technique. FINDINGS: HEMORRHAGE: No intracranial hemorrhage. BRAIN: No mass effect or edema. No atrophy or chronic microvascular ischemic changes. VENTRICLES: Unremarkable. No hydrocephalus. CALVARIUM: Unremarkable. PARANASAL SINUSES: Unremarkable as visualized. No significant inflammatory changes. MASTOID AIR CELLS: Unremarkable as visualized. No inflammatory changes. OTHER FINDINGS: None. IMPRESSION: Normal CT of the Head.
[2018-07-16 11:23] VITALS: BP 150/95; PULSE 79; RESP 16; O2SAT 98
--- NOTE | 2018-07-19 19:21 | CARD ---
APPROVED REPORT Date of service: 07/16/2018 EKG Measurement Heart [id number] CO [id number] <Conclusion> Normal sinus rhythm Normal ECG
== END 2018-07-16 11:23 | disposition home or self-care (01) ==
LOC: C.ER 08:14
DX: R06.00 Dyspnea, unspecified (principal)